=== PATIENT | female | born 1985 | race Caucasian/White ===

== ENCOUNTER 2017-05-09 12:32 | Emergency (ER) | payer SELFPAY ==
[~2017-05-09] VITALS: Ht 160 cm; Wt 78.9 kg
[~2017-05-09 12:32] MED LIST: PREDNISONE 10MG10 M1 PO; PROVENTIL0.09 MG/A1 INH; ROBITUSSIN W/CO10 ML PO
[2017-05-09 12:38] VITALS: BP 118/76
--- NOTE | 2017-05-09 13:55 | CT SCAN REPORT ---
EXAMINATION: CT ABDOMEN AND PELVIS WITHOUT CONTRAST CLINICAL INFORMATION: Right-sided flank pain with hematuria. Presumptive diagnosis of nephrolithiasis. COMPARISON: None. TECHNIQUE: Multidetector volumetric imaging was performed from the superior aspect of the liver through the pubic symphysis. Sagittal and coronal reformatted images were obtained on the technologist workstation. DLP: 365.66 mGy-cm. FINDINGS: LUNG BASES: The visualized lung bases are unremarkable. LIVER, GALLBLADDER, AND BILIARY TREE: The liver is normal in size, shape, and attenuation. No focal hepatic lesion on noncontrast imaging. No biliary ductal dilatation is present. The gallbladder is unremarkable with no evidence of radiopaque gallstones, gallbladder wall thickening, or obvious pericholecystic inflammatory changes. PANCREAS, SPLEEN, ADRENAL GLANDS: Unremarkable on noncontrast imaging. KIDNEYS AND URETERS: The kidneys are normal in size, shape, and attenuation. No hydronephrosis, hydroureter, or calculi seen. No perinephric stranding. BLADDER: Suboptimally assessed due to underdistention. However, there appears to be diffuse bladder wall thickening with perivesical fat stranding and edema seen, suspicious for a cystitis. No bladder calculi are seen. GASTROINTESTINAL TRACT: The small and large bowel are unremarkable. The appendix is unremarkable. ABDOMINAL WALL: There is a small fat-containing umbilical hernia. LYMPH NODES, VASCULAR: Unremarkable. PELVIC VISCERA: Unremarkable. OSSEOUS STRUCTURES: Cystic changes are seen at the femoral head neck junction bilaterally, possibly secondary to subtle impingement. Dense sclerotic ovoid mass in the intertrochanteric region of the left hip is seen, most consistent with a bone island. IMPRESSION: 1. Diffusely thick-walled appearance of the bladder with surrounding perivesical fat stranding and edema. Findings are somewhat suboptimally assessed due to bladder under distention but raise the suspicion of a cystitis. Close clinical correlation is requested. 2. No evidence of nephrolithiasis or obstructive uropathy. 3. Small fat-containing umbilical hernia.
--- NOTE | 2017-05-09 14:13 | ED GI/GU/ABDOMINAL COMPLAINT ---
History of Present Illness General Chief Complaint: General Adult Stated Complaint: LOWER BACK PAIN, BLOOD IN URINE Source: patient Exam Limitations: no limitations Vital Signs & Intake/Output Vital Signs & Intake/Output ED Intake and Output 05/10 0000 05/09 1200 Intake Total Output Total Balance Patient 78.925 kg Weight Weight Reported by Patient Measurement Method Allergies Coded Allergies: No Known Allergies (05/09/17) Reconcile Medications Albuterol Sulfate (Proventil Hfa) 90 MCG HFA.AER.AD 2 PUFF INH Q4H PRN WHEEZING/SHORTNESS OF BREATH Prednisone 10 MG TABLET 0 PO DAILY INFLAMMATION DAY 1: 5 TABS PO QD DAY 2: 4 TABS PO QD DAY 3: 3 TABS PO QD DAY 4: 2 TABS PO QD DAY 5: 1 TABS PO QD Robitussin AC (Guaifenesin-Codeine Syrup) 200 MG-20 MG/10 ML LIQUID 2 TSP PO Q6H PRN COUGH Sulfamethoxazole/Trimethoprim (Bactrim Ds Tablet) 800 MG-160 MG TABLET 1 TAB PO BID UTI Triage Note: TRIAGE: 31 Y/O FEMALE PRESENTS C/O LOWER BACK PAIN SINCE YESTERDAY. REPORTS URINARY FREQUENCY AND HEMATURIA. Triage Nurses Notes Reviewed? yes ? N Is pt currently ? No HPI: 31F NO PMH WITH 1 DAY OF RIGHT FLANK PAIN, HEMATURIA, BURNING DYSURIA. DENIES FEVER, CHILLS, CHEST PAIN, SOB, DIARRHEA, CONSTIPATION. SEXUALLY ACTIVE WITH ONE PARTNER. Past History Travel History Traveled to [place] past 21 day No Medical History Any Pertinent Medical History? see below for history Tetanus Vaccine: 09/24/12 Surgical History Surgical History: non-contributory Psychosocial History What is your primary language [facility] Tobacco Use: Current Daily Use Daily Tobacco Use Amount/Type: => 5 Cigarettes daily ETOH Use: denies use Illicit Drug Use: denies illicit drug use Family History Hx Contributory? No Review of Systems Review of Systems Constitutional: Reports: see HPI. EENTM: Reports: no symptoms. Respiratory: Reports: no symptoms. Cardiovascular: Reports: no symptoms. GI: Reports: no symptoms. Genitourinary: Reports: see HPI. Musculoskeletal: Reports: see HPI. Skin: Reports: no symptoms. Neurological/Psychological: Reports: no symptoms. Hematologic/Endocrine: Reports: no symptoms. Immunologic/Allergic: Reports: no symptoms. All Other Systems: Reviewed and Negative Physical Exam Physical Exam General Appearance: well developed/nourished, alert, awake, mild distress Head: atraumatic, normal appearance Eyes: Bilateral: normal appearance. Ears, Nose, Throat, Mouth: hearing grossly normal, moist mucous membrane Neck: normal inspection, supple, full range of motion Respiratory: normal breath sounds, no respiratory distress Cardiovascular: regular rate/rhythm Gastrointestinal: soft, TENDER RIGHT FLANK AND SUPRAPUBIC TENDERNESS Rectal: deferred Extremities: normal range of motion, evidence of injury Neurologic/Psych: no motor/sensory deficits Core Measures ACS in differential dx? No Severe Sepsis Present: No Septic Shock Present: No Progress Differential Diagnosis: AAA, AMI, appendicitis, biliary colic, bowel obstruction , colon cancer, cholecystitis, diverticulitis, ectopic , endometritis, esophageal varices, gastritis, hepatitis, hernia, hemorrhoids, ischemic bowel, inflamm bowel dis, intrauterine , kidney stone, Colleen-Hilda tear, ovarian cyst, ovarian torsion, pancreatitis, PID/cervicitis, peptic ulcer, PUD/ GERD, perforated viscous, SBO, threatened AB, UTI/pyelo Plan of Care: Orders Procedure Date/time Status CBC WITHOUT DIFFERENTIAL 05/09 1316 Active BASIC ELECTROLYTES PLUS BUN&CR 05/09 1316 Complete URINE 05/09 1251 Complete URINALYSIS 05/09 1251 Complete Laboratory Tests 05/09/17 1330: Anion Gap 13, Estimated GFR > 60, BUN/Creatinine Ratio 20.0, CBC w Diff MAN DIFF ORDERED, RBC 4.51, MCV 87.1, MCH 28.8, RDW 13.1, MPV 10.4, Gran % 76.3 H, Lymphocytes % 17.2 L, Monocytes % 5.7, Eosinophils % 0.7, Basophils % 0.1, Absolute Granulocytes 13.7 H, Segmented Neutrophils Pending, Absolute Lymphocytes 3.1, Absolute Monocytes 1.0 H, Absolute Eosinophils 0.1, Absolute Basophils 0, PUBS MCHC 33.1 05/09/17 1252: Urine Color YEL, Urine Clarity HAZY H, Urine pH 6.0, Ur Specific [place] 1.025, Urine Protein 100 H, Urine Ketones NEG, Urine Nitrite NEG, Urine Bilirubin NEG, Urine Urobilinogen 0.2, Ur Leukocyte Esterase MOD H, Ur Microscopic SEDIMENT EXAMINED, Urine RBC >75 H, Urine WBC > 75 H, Ur Epithelial Cells MANY H, Urine Bacteria FEW H, Urine Hemoglobin LARGE H, Urine Glucose NEG, Urine Test NEGATIVE CT ABDOMEN OBTAINED FOR SUSPICION OF NEPHROLITHIASIS, SHOWED ONLY ACUTE CYSTITIS WITHOUT EVIDENCE OF OBSTRUCTION OR HYDRONEPHROSIS. UA POSITIVE FOR LIKELY UTI. CBC NORMAL. WILL DISCHARGE HOME ON BACTRIM WITH PCP FOLLOW UP (DANILO XAVIER,KATY) Diagnostic Imaging: Viewed by Me: CT Scan. Discussed w/RAD: CT Scan. Radiology Impression: PATIENT: FRANK DELANEY PRESENT AGE: 31 PATIENT ACCOUNT NO: [id number] : 84 LOCATION: [facility] ORDERING PHYSICIAN: KATY CARRASCO MD SERVICE DATE: 05/09/17 EXAM TYPE : CAT - CT ABD & PELVIS W/O IV CONTRAS EXAMINATION: CT ABDOMEN AND PELVIS WITHOUT CONTRAST CLINICAL INFORMATION: Right-sided flank pain with hematuria. Presumptive diagnosis of nephrolithiasis. COMPARISON: None. TECHNIQUE: Multidetector volumetric imaging was performed from the superior aspect of the liver through the pubic symphysis. Sagittal and coronal reformatted images were obtained on the technologist workstation. DLP: 365.66 mGy-cm. FINDINGS: LUNG BASES: The visualized lung bases are unremarkable. LIVER, GALLBLADDER, AND BILIARY TREE: The liver is normal in size, shape, and attenuation. No focal hepatic lesion on noncontrast imaging. No biliary ductal dilatation is present. The gallbladder is unremarkable with no evidence of radiopaque gallstones, gallbladder wall thickening, or obvious pericholecystic inflammatory changes. PANCREAS, SPLEEN, ADRENAL GLANDS: Unremarkable on noncontrast imaging. KIDNEYS AND URETERS: The kidneys are normal in size, shape, and attenuation. No hydronephrosis, hydroureter, or calculi seen. No perinephric stranding. BLADDER: Suboptimally assessed due to underdistention. However, there appears to be diffuse bladder wall thickening with perivesical fat stranding and edema seen, suspicious for a cystitis. No bladder calculi are seen. GASTROINTESTINAL TRACT: The small and large bowel are unremarkable. The appendix is unremarkable. ABDOMINAL WALL: There is a small fat-containing umbilical hernia. LYMPH NODES, VASCULAR: Unremarkable. PELVIC VISCERA: Unremarkable. OSSEOUS STRUCTURES: Cystic changes are seen at the femoral head neck junction bilaterally, possibly secondary to subtle impingement. Dense sclerotic ovoid mass in the intertrochanteric region of the left hip is seen, most consistent with a bone island. IMPRESSION: 1. Diffusely thick-walled appearance of the bladder with surrounding perivesical fat stranding and edema. Findings are somewhat suboptimally assessed due to bladder under distention but raise the suspicion of a cystitis. Close clinical correlation is requested. 2. No evidence of nephrolithiasis or obstructive uropathy. 3. Small fat-containing umbilical hernia. Initial ED EKG: NOT PERFORMED Departure Departure Time of Disposition: 1412 Disposition: HOME OR SELF CARE Condition: Stable Clinical Impression Primary Impression: Acute cystitis Referrals: MARIPOSA DUMAS (PCP/Family) Departure Forms: Customer Survey General Discharge Information Prescriptions: Current Visit Scripts Sulfamethoxazole/Trimethoprim (Bactrim Ds Tablet) 1 TAB PO BID #14 TAB
[2017-05-09] MEDS ORDERED: BACTRIM DS TAB1 EACH PO (14:14)
[2017-05-09 14:40] LABS: ABSOLUTE BASOPHIL COUNT 0 /CUMM (0.0-0.2); ABSOLUTE EOSINOPHIL COUNT 0.1 /CUMM (0.0-0.7); ABSOLUTE GRANULOCYTE CT 13.7 /CUMM (1.4-6.5); ABSOLUTE LYMPH COUNT 3.1 /CUMM (1.2-3.4); BASOPHIL % 0.1 % (0.0-2.0); EOSINOPHIL % 0.7 % (0-5); HEMATOCRIT 39.3 % (37-47); MEAN CORPUSCULAR HGB 28.8 PG (27.0-31.0); MEAN CORPUSCULAR HGB CONC 33.1 G/DL (33.0-37.0); MEAN CORPUSCULAR VOLUME 87.1 FL (81.0-99.0); MEAN PLATELET VOLUME 10.4 FL (7.4-10.4); PLATELET COUNT 248 /CUMM (130-400); RBC DISTRIBUTION WIDTH 13.1 % (11.5-14.5); RED BLOOD CELL CT 4.51 /CUMM (4.20-5.40)
[2017-05-09 14:41] LABS: GRANULOCYTE % 76.3 % (42.2-75.2)
== END 2017-05-09 14:26 ==
LOC: ERH 12:32
PROVIDERS: Internal Medicine
DX: N30.00 Acute cystitis without hematuria (principal)
CPT/HCPCS: 74176; 81001; 81025; 82436